=== PATIENT | female | born 1955 ===

== ENCOUNTER 2018-01-22 11:50 | Emergency (ER) | payer MEDICARE, MEDICAID ==
[2018-01-22 12:05] VITALS: RESP 18; TEMP 97.5
--- NOTE | 2018-01-22 12:37 | C.PDOC ---
History Of Present Illness 62 y/o female presents to ED with c/o left shoulder,left wrist and left thumb pain s/p trip and fall 3 days ago while at [facility]. Patient denies loc, head injury, nausea, vomiting, change in sensation or any other complaints at this time. Time Seen by Provider: 01/22/18 12:04 Chief Complaint (Nursing): Upper Extremity Problem/Injury History Per: Patient History/Exam Limitations: no limitations Onset/Duration Of Symptoms: Days Current Symptoms Are (Timing): Still Present Past Medical History Reviewed: Historical Data, Nursing Documentation, Vital Signs Vital Signs: Last Vital Signs Temp 97.5 F L 01/22/18 12:00 Pulse 54 L 01/22/18 12:00 Resp 18 01/22/18 12:00 BP 154/82 H 01/22/18 12:00 Pulse Ox 98 01/22/18 12:00 - Medical History PMH: HTN, Hyperlipidemia Surgical History: No Surg Hx Family History: States: No Known Family Hx - Social History Hx Alcohol Use: No Hx Substance Use: No - Immunization History Hx Tetanus Toxoid Vaccination: Yes Hx Influenza Vaccination: No Hx Pneumococcal Vaccination: Yes Review Of Systems Eyes: Negative for: Vision Change Musculoskeletal: Positive for: Shoulder Pain, Hand Pain Skin: Negative for: Rash Neurological: Negative for: Weakness, Numbness, Headache Physical Exam - Physical Exam Appears: Non-toxic, No Acute Distress Skin: Warm, Dry, No Rash, No Ecchymosis Head: Atraumatic, Normacephalic Eye(s): bilateral: Normal Inspection Oral Mucosa: Moist Neck: Normal ROM, Supple Cardiovascular: Rhythm Regular Respiratory: Normal Breath Sounds, No Rales, No Rhonchi, No Wheezing Extremity: Normal ROM, Capillary Refill (<2 seconds), No Deformity Pulses: Left Radial: Normal Neurological/Psych: Oriented x3, Normal Motor, Normal Sensation ED Course And Treatment O2 Sat by Pulse Oximetry: 98 (RA) Pulse Ox Interpretation: Normal Disposition Counseled Patient/Family Regarding: Studies Performed, Diagnosis, Need For Followup - Disposition Referrals: YOUR,PMD [Other] Disposition: HOME/ ROUTINE Disposition Time: 12:38 Condition: IMPROVED Instructions: Wrist Sprain (DC) Forms: [employer] (Scottish) Print Language: SOUTH AFRICAN - Clinical Impression Clinical Impression: Wrist sprain, Fall, Shoulder sprain - Scribe Statement The provider has reviewed the documentation as recorded by the Diego Howell All medical record entries made by the Diego were at my direction and personally dictated by me. I have reviewed the chart and agree that the record accurately reflects my personal performance of the history, physical exam, medical decision making, and the department course for this patient. I have also personally directed, reviewed, and agree with the discharge instructions and disposition.
[2018-01-22 12:48] VITALS: BP 124/75; PULSE 55
[2018-01-22 12:49] VITALS: O2SAT 98
--- NOTE | 2018-01-22 13:10 | RAD ---
PROCEDURE: Radiographs of the Left Shoulder HISTORY: trauma COMPARISON: None available. FINDINGS: BONES: No acute displaced fracture. The distal clavicle and underlying ribs appear intact. JOINTS: No acute dislocation. SOFT TISSUES: Soft tissues appear unremarkable. Axillary surgical clips. Atherosclerotic calcifications of the aortic knob. IMPRESSION: No acute displaced fracture or dislocation evident. If symptoms persist or if there is continued clinical concern, x-ray follow-up in 7-10 days should be considered.
--- NOTE | 2018-01-22 13:13 | RAD ---
Date of service: 01/22/2018 PROCEDURE: Left wrist radiographs Left hand 3rd digit/finger radiographs HISTORY: TRAUMA COMPARISON: None. FINDINGS: No acute displaced fracture or dislocation identified. Soft tissue swelling. No evidence of radiopaque foreign body. IMPRESSION: No acute displaced fracture identified. If symptoms persist or if there is continued clinical concern, x-ray follow-up in 7-10 days should be considered.
== END 2018-01-22 12:48 | disposition home or self-care (01) ==
LOC: C.ER 11:50
DX: S43.402A Unspecified sprain of left shoulder joint, initial encounter (principal); S63.502A Unspecified sprain of left wrist, initial encounter; W01.0XXA Fall on same level from slipping, tripping and stumbling without subsequent striking against object, initial encounter; Y92.59 Other trade areas as the place of occurrence of the external cause